=== PATIENT | male | born 1950 | race Caucasian/White ===

== ENCOUNTER 2024-11-26 14:55 | Emergency (ER) | payer MEDICARE, SELFPAY ==
[2024-11-26 14:55] VITALS: BP 105/65; PULSE 95; RESP 16; TEMP 36.8; O2SAT 93; BMI 33.9
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
--- NOTE | 2024-11-26 15:18 | PC.PHAR ---
Susan shows no allergies listed. Unknown if pt took medications this morning. Will follow up when I can get into the room.
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
[2024-11-26] MEDS: iohexol 350 mg/mL 500 mL Btl (per mL) IV (15:32)
[2024-11-26 16:34] VITALS: BP 124/59; PULSE 94; RESP 16; O2SAT 95
[2024-11-26 16:50] VITALS: BP 124/59; PULSE 97; RESP 16; O2SAT 97
[2024-11-26 17:15] LABS: Basophils % 0.3 %; Eosinophils % 0.1 %; Hematocrit 35.2 % (37-53); Lymphocytes # 0.7 10^3/uL (0.8-4.8); Mean Corpuscular HGB Conc 32.7 g/dL (30-55); Mean Corpuscular Hemoglobin 31.7 pg (27-33); Mean Platelet Volume 9.6 fL (7.4-10.4); Monocytes # 0.9 10^3/uL (0.2-0.9); Monocytes % 6.3 %; Neutrophils # 12.87 10^3/uL (1.8-7.7); Neutrophils % 87.6 %; Nucleated Red Blood Cells % 0 %; Platelet Count 244 10^3/cmm (157-399); Red Blood Count 3.63 10^6/uL (3.85-5.65); Red Cell Distribution Width 12.8 % (12.1-15.1); White Blood Count 14.69 10^3/uL (3.29-11.43)
[2024-11-26] MEDS: HYDROcodone-acetaminophen 10-325 mg Tablet 1 TAB PO (17:30)
[2024-11-26 17:34] LABS: Alanine Aminotransferase 14 U/L (0-41); Alkaline Phosphatase 59 U/L (40-130); Anion Gap 16.9 (5-19); Aspartate Amino Transferase 16 U/L (0-40); Blood Urea Nitrogen 23 mg/dL (8-23); Calcium 9.1 mg/dL (8.5-10.5); Carbon Dioxide 20 mmol/L (22-29); Chloride 105 mmol/L (98-107); Creatinine Clr Calc Pharmacy 54.2579; Glucose 106 mg/dL (65-115); Osmolality Calculated 288 mOsm/kg (285-295); Potassium 4.9 mmol/L (3.5-5.1); Sodium 137 mmol/L (136-145)
[2024-11-26 17:37] LABS: Bilirubin Urine Negative (Negative); Blood Urine Negative (Negative); Glucose Urine UA Negative (Normal); Ketones Urine Negative (Negative); Leukocyte Esterase Urine Negative (Negative); Nitrate Urine Negative (Negative); Protein Urine Trace (Negative); Urine Appearance Clear (CLEAR); Urine Color Yellow (Yellow); Urobilinogen Urine 0.2 mg/dL (Negative); pH Urine 5.5 (5-7)
[2024-11-26 17:40] LABS: Add Urine Microscopic? YES; Bacteria Urine None Seen /hpf; Hyaline Casts Urine 6.61 /lpf; RBC Urine 0-2 /hpf (0-2); Squamous Epithelial Cell Urine 0-5 /hpf (0-5); WBC Urine 0-5 /hpf (0-5)
[2024-11-26 17:50] LABS: Specific Gravity, Urine 1.044 (1.005-1.030)
[2024-11-26] MEDS: sodium chloride 0.9% 1,000 ML 999 ML IV (17:50)
[2024-11-26] MEDS: tetanus-dipt-pertussis 0.5 mL SDV IM (17:51)
[2024-11-26 17:56] VITALS: BP 108/72; PULSE 106; RESP 16; O2SAT 97
[2024-11-26 18:06] VITALS: PULSE 103; O2SAT 96
[2024-11-26 18:14] LABS: Total Bilirubin 0.5 mg/dL (0.15-1.2)
[2024-11-26 18:54] VITALS: BP 136/91; PULSE 99; O2SAT 98
== END 2024-11-26 18:55 | disposition home or self-care (01) ==
PROVIDERS: Emergency Provider Family Medicine
DX: S42.022A Displaced fracture of shaft of left clavicle, initial encounter for closed fracture (principal); S22.32XA Fracture of one rib, left side, initial encounter for closed fracture; S01.81XA Laceration without foreign body of other part of head, initial encounter; V89.2XXA Person injured in unspecified motor-vehicle accident, traffic, initial encounter; Z79.01 Long term (current) use of anticoagulants; S51.011A Laceration without foreign body of right elbow, initial encounter
CPT/HCPCS: 12001; 12013; 36415; 70450; 71260; 72125; 74177; 80053; 81001; 85025; 90471; 90715; 96360; 99285; J7030; J9999